=== PATIENT | female | born 1940 | race Caucasian/White ===

== ENCOUNTER 2017-08-30 13:34 | Inpatient (IN) | payer MEDICARE, MEDICAID ==
[~2017-08-30] VITALS: Ht 142.2 cm; Wt 44.9 kg
[~2017-08-30 13:34] MED LIST: NIFE60TA64 PO; PROTONIX PO
[2017-08-30 16:40] LABS: BASOPHILS % 0.7 % (0.0-2.0); EOSINOPHILS % 2.6 % (0.0-5.0); HEMOGLOBIN. 11.6 g/dL (12.0-16.0); LYMPHOCYTES % 28.1 % (20.0-50.0); MEAN CORPUSCULAR VOLUME 93.1 fL (81.0-99.0); MEAN PLATELET VOLUME 9.5 fl (7.4-10.4); MONOCYTES % 14.8 % (2.0-8.0); NEUTROPHILS % 53.8 % (40.0-76.0); PLATELET 128 x1000/uL (130-400); RED BLOOD CELL COUNT 3.86 mill/uL (4.2-5.4); RED CELL DISTRIBUTION WIDTH 18.4 % (11.6-14.6)
[2017-08-30 16:45] LABS: INR 1.7; PARTIAL THROMBOPLASTIN TIME 30.5 sec (23.4-31.0); PROTHROMBIN TIME 17.3 sec (9.4-11.6)
[2017-08-30 16:51] LABS: CARBON DIOXIDE 31 mEq/L (21-32); CHLORIDE 102 mEq/L (98-107)
[2017-08-30 16:56] LABS: TROPONIN I 0.64 ng/mL (0.00-0.04)
[2017-08-30] MEDS ORDERED: ASPIRIN 325MG EC TABLET PO ONE (17:30)
[2017-08-30] MEDS ORDERED: HYDROCODONE/ACETAMINOPHEN 5/325MG TABLET PO PRN (22:30)
[2017-08-30] MEDS ORDERED: LORAZEPAM 2MG/ML CPJ IV PRN (22:30)
[2017-08-30] MEDS ORDERED: ONDANSETRON HCL 4MG/2ML VIAL IV PRN (22:30)
[2017-08-30] MEDS ORDERED: ENOXAPARIN 40MG/0.4ML SYR SUBCUT SCH (22:30)
[2017-08-30] MEDS ORDERED: IPRATROPIUM/ALBUTEROL 0.5-3(2.5)MG/3ML NEB INH PRN (22:30)
[2017-08-30] MEDS ORDERED: MAGNESIUM/ALUMINUM HYDROXIDE/SIMETHICONE 30ML UDC PO PRN (22:30)
[2017-08-30] MEDS ORDERED: HYDROMORPHONE HCL/PF 2MG/ML CPJ IV PRN (22:30)
[2017-08-30] MEDS ORDERED: GUAIFENESIN 200MG/10ML SUGAR FREE UDC PO PRN (22:30)
[2017-08-30] MEDS ORDERED: ACETAMINOPHEN 325MG TABLET PO PRN (22:30)
[2017-08-30] MEDS ORDERED: DOCUSATE SODIUM 100MG CAPSULE PO PRN (22:30)
[2017-08-30] MEDS ORDERED: NA PHOS,M-B/NA PHOS,DI-BA ENEMA 118ML PR PRN (22:30)
[2017-08-30] MEDS ORDERED: CLONIDINE 0.1MG TABLET PO PRN (22:30)
[2017-08-30] MEDS ORDERED: DIPHENHYDRAMINE 50MG/ML VIAL IV PRN (22:30)
[2017-08-30 22:45] VITALS: BP 115/62
[2017-08-30 23:00] VITALS: BP 115/62
[2017-08-30 23:45] VITALS: BP 115/62
[2017-08-31 04:00] VITALS: BP 133/76
[2017-08-31 07:00] LABS: CARBON DIOXIDE 24 mEq/L (21-32); CHLORIDE 103 mEq/L (98-107); HDL CHOLESTEROL 47 mg/dL (40-59); LDL CHOLESTEROL 42 mg/dL (5-100); T4 FREE 0.78 ng/dL (0.76-1.46)
[2017-08-31 07:06] LABS: BASOPHILS % 0.6 % (0.0-2.0); EOSINOPHILS % 3.2 % (0.0-5.0); HEMATOCRIT. 35.1 % (36.0-48.0); HEMOGLOBIN. 11.2 g/dL (12.0-16.0); LYMPHOCYTES % 28.4 % (20.0-50.0); MEAN CORPUSCULAR HEMOGLOBIN 29.9 pg (28.0-32.0); MEAN CORPUSCULAR VOLUME 93.6 fL (81.0-99.0); MEAN PLATELET VOLUME 10.5 fl (7.4-10.4); MONOCYTES % 13.3 % (2.0-8.0); NEUTROPHILS % 54.5 % (40.0-76.0); PLATELET 114 x1000/uL (130-400); RED BLOOD CELL COUNT 3.75 mill/uL (4.2-5.4); RED CELL DISTRIBUTION WIDTH 18.2 % (11.6-14.6)
[2017-08-31 07:42] LABS: TROPONIN I 0.65 ng/mL (0.00-0.04)
[2017-08-31 08:46] VITALS: BP 138/83
[2017-08-31] MEDS: OMEPRAZOLE 20MG CAPSULE EXTENDED RELEASE PO SCH (09:54)
[2017-08-31] MEDS: ASPIRIN 81MG EC TABLET PO SCH (09:54)
[2017-08-31] MEDS: ENOXAPARIN 30MG/0.3ML SYR SUBCUT SCH (09:54)
[2017-08-31 12:00] VITALS: BP 127/75
[2017-08-31] MEDS ORDERED: WARF1TAB46 PO (13:45)
[2017-08-31] MEDS: CLOPIDOGREL 75MG TABLET PO SCH (14:22)
[2017-08-31 16:25] VITALS: BP 121/73
[2017-08-31 20:00] VITALS: BP 124/73
[2017-08-31] MEDS: CARVEDILOL 3.125 MG TABLET PO SCH (20:21)
[2017-08-31] MEDS ORDERED: MIRTAZAPINE 15MG TABLET PO SCH (21:00)
[2017-08-31] MEDS ORDERED: ATORVASTATIN CALCIUM 40MG TABLET PO SCH ×2 (21:00)
[2017-09-01] VITALS: BP 127/77
[2017-09-01 04:00] VITALS: BP 123/68
[2017-09-01 06:14] LABS: BASOPHILS % 0.8 % (0.0-2.0); HEMATOCRIT. 35.5 % (36.0-48.0); HEMOGLOBIN. 11.4 g/dL (12.0-16.0); LYMPHOCYTES % 21.7 % (20.0-50.0); MEAN CORPUSCULAR HEMOGLOBIN 30.1 pg (28.0-32.0); MEAN CORPUSCULAR VOLUME 93.3 fL (81.0-99.0); MEAN PLATELET VOLUME 9.8 fl (7.4-10.4); MONOCYTES % 10.8 % (2.0-8.0); NEUTROPHILS % 64.7 % (40.0-76.0); PLATELET 98 x1000/uL (130-400); RED CELL DISTRIBUTION WIDTH 17.9 % (11.6-14.6)
[2017-09-01] MEDS: OMEPRAZOLE 20MG CAPSULE EXTENDED RELEASE PO SCH (06:14)
[2017-09-01 06:41] LABS: PHOSPHORUS 4.4 mg/dL (2.5-4.9)
[2017-09-01 08:00] VITALS: BP 125/69
[2017-09-01] MEDS ORDERED: FOLIC ACID/VITAMIN B COMP W-C TABLET PO SCH (09:00)
[2017-09-01] MEDS: ASPIRIN 81MG EC TABLET PO SCH (10:28)
[2017-09-01] MEDS: CLOPIDOGREL 75MG TABLET PO SCH (10:29)
[2017-09-01] MEDS: CARVEDILOL 3.125 MG TABLET PO SCH (10:29)
[2017-09-01] MEDS: ENOXAPARIN 30MG/0.3ML SYR SUBCUT SCH (10:31)
[2017-09-01 10:43] LABS: INR 1.4; PROTHROMBIN TIME 14.3 sec (9.4-11.6)
[2017-09-01 11:51] VITALS: BP 125/69
[2017-09-01 12:00] VITALS: BP 127/70
== END 2017-09-01 12:40 | disposition home or self-care (01) | DRG 604 ==
LOC: ER 14:07 → 8WST 21:28 → ENRESERV 21:53
PROVIDERS: ADMIT Internal Medicine; ATTEND Internal Medicine
PROC: 5A1D70Z Performance of Urinary Filtration, Intermittent, Less than 6 Hours Per Day (ICD-10-PCS; principal; 2017-08-31)
DX: S00.83XA Contusion of other part of head, initial encounter (principal); N18.6 End stage renal disease; I13.2 Hypertensive heart and chronic kidney disease with heart failure and with stage 5 chronic kidney disease, or end stage renal disease; E46 Unspecified protein-calorie malnutrition; D69.6 Thrombocytopenia, unspecified; I27.29 Other secondary pulmonary hypertension; I08.3 Combined rheumatic disorders of mitral, aortic and tricuspid valves; I27.81 Cor pulmonale (chronic); I42.9 Cardiomyopathy, unspecified; D64.9 Anemia, unspecified; I48.0 Paroxysmal atrial fibrillation; I25.10 Atherosclerotic heart disease of native coronary artery without angina pectoris; K21.9 Gastro-esophageal reflux disease without esophagitis; I73.9 Peripheral vascular disease, unspecified; M10.9 Gout, unspecified; E78.00 Pure hypercholesterolemia, unspecified; I50.9 Heart failure, unspecified; S80.10XA Contusion of unspecified lower leg, initial encounter; M19.90 Unspecified osteoarthritis, unspecified site; E78.5 Hyperlipidemia, unspecified; W18.30XA Fall on same level, unspecified, initial encounter; M81.0 Age-related osteoporosis without current pathological fracture; Z86.718 Personal history of other venous thrombosis and embolism; Z83.3 Family history of diabetes mellitus; Z82.49 Family history of ischemic heart disease and other diseases of the circulatory system; Z98.42 Cataract extraction status, left eye; Z99.2 Dependence on renal dialysis; Z88.8 Allergy status to other drugs, medicaments and biological substances; I25.2 Old myocardial infarction; Z68.22 Body mass index [BMI] 22.0-22.9, adult; Y93.89 Activity, other specified; Y92.89 Other specified places as the place of occurrence of the external cause; Y99.8 Other external cause status; Z86.73 Personal history of transient ischemic attack (TIA), and cerebral infarction without residual deficits; Z95.810 Presence of automatic (implantable) cardiac defibrillator; Z87.11 Personal history of peptic ulcer disease; Z98.41 Cataract extraction status, right eye; Z82.41 Family history of sudden cardiac death; Z79.01 Long term (current) use of anticoagulants
CPT/HCPCS: 36415; 70450; 71010; 80048; 80053; 80061; 83690; 83735; 84100; 84439; 84443; 84484; 84550; 85025; 85610; 85730; 93005; 93306; 99285; J1650; J7030

== ENCOUNTER 2017-11-02 18:15 | Inpatient (IN) | payer MEDICARE, MEDICAID ==
[~2017-11-02] VITALS: Ht 157.5 cm; Wt 56.5 kg
[~2017-11-02 18:15] MED LIST changes: +WARF1TAB46 PO
[2017-11-02] MEDS ORDERED: LABETALOL 5MG/ML SYR 20 MG/4 ML SYRINGE IV ONE (18:45)
[2017-11-02] MEDS ORDERED: ONDANSETRON HCL 4MG/2ML VIAL IV ONE (18:45)
[2017-11-02] MEDS ORDERED: PIPERACILLIN/TAZ 3.375G PREMIX 50 ML IV ONE (19:00)
[2017-11-02] MEDS ORDERED: ACETAMINOPHEN 650MG SUPP PR ONE (19:00)
[2017-11-02 20:15] LABS: HEMATOCRIT. 34.4 % (36.0-48.0); MEAN CORPUSCULAR HEMOGLOBIN 29.2 pg (28.0-32.0); MEAN CORPUSCULAR VOLUME 91.8 fL (81.0-99.0); MEAN PLATELET VOLUME 9.6 fl (7.4-10.4); PLATELET 90 x1000/uL (130-400); RED BLOOD CELL COUNT 3.75 mill/uL (4.2-5.4); RED CELL DISTRIBUTION WIDTH 23.3 % (11.6-14.6)
[2017-11-02] MEDS ORDERED: VANCOMYCIN 1 G PREMIX 200 ML IV SCH (20:30)
[2017-11-02 20:33] LABS: CARBON DIOXIDE 29 mEq/L (21-32); CHLORIDE 98 mEq/L (98-107); PHOSPHORUS 4.7 mg/dL (2.5-4.9)
[2017-11-02 20:40] LABS: TROPONIN I 0.98 ng/mL (0.00-0.04)
[2017-11-02] MEDS ORDERED: ASPIRIN 81MG TABLET PO ONE (20:45)
[2017-11-02 21:04] LABS: PLATELET ESTIMATE DECREASED
[2017-11-02 22:11] LABS: PROTHROMBIN TIME > 100.0 sec (9.4-11.6)
[2017-11-02 22:12] LABS: INR > 10.0
[2017-11-03] VITALS (67 sets, daily range): BP systolic 62–218; BP diastolic 20–181
[2017-11-03] MEDS: HYDROCODONE/APAP 7.5/325MG 1 TAB TABLET PO PRN (03:45)
[2017-11-03] MEDS ORDERED: PIPERACILLIN/TAZ 2.25G PREMIX 50 ML IV SCH (10:00)
[2017-11-03 10:54] LABS: HEMATOCRIT. 35.1 % (36.0-48.0); MEAN CORPUSCULAR VOLUME 92.6 fL (81.0-99.0); MEAN PLATELET VOLUME 9.2 fl (7.4-10.4); PLATELET 85 x1000/uL (130-400); RED CELL DISTRIBUTION WIDTH 23.4 % (11.6-14.6)
[2017-11-03] MEDS ORDERED: CEFTRIAXONE 2 G in DEXTROSE 5% WATER 50 ML IV SCH (11:00)
[2017-11-03 11:12] LABS: PROTHROMBIN TIME 92.9 sec (9.4-11.6)
[2017-11-03 11:15] LABS: INR 8.9
[2017-11-03 11:29] LABS: CARBON DIOXIDE 25 mEq/L (21-32); CHLORIDE 98 mEq/L (98-107); PLATELET ESTIMATE DECREASED
[2017-11-03] MEDS ORDERED: PHYTONADIONE 10MG/ML AMP SUBCUT NR (12:00)
[2017-11-03] MEDS ORDERED: ONDANSETRON HCL 4MG/2ML VIAL IV PRN (12:00)
[2017-11-03] MEDS ORDERED: GUAIFENESIN 200MG/10ML SUGAR FREE UDC PO PRN (12:00)
[2017-11-03] MEDS ORDERED: DEXT 5%/0.45% NACL 500ML 500 ML IV ONE (12:00)
[2017-11-03] MEDS ORDERED: AZITHROMYCIN 500 MG in DEXT 5% WATER 250 ML IV SCH (12:00)
[2017-11-03] MEDS: MEROPENEM 500 MG in SODIUM CHLORIDE 0.9% 50 ML IV SCH ×2 (13:50→21:28)
[2017-11-03 18:02] LABS: CREATINE KINASE MB FRACTION 5.4 ng/mL (0.5-3.6)
[2017-11-03 18:13] LABS: TROPONIN I 0.88 ng/mL (0.00-0.04)
[2017-11-04] VITALS (29 sets, daily range): BP systolic 88–131; BP diastolic 25–91
[2017-11-04 01:30] LABS: CREATINE KINASE MB FRACTION 5.6 ng/mL (0.5-3.6)
[2017-11-04 01:55] LABS: TROPONIN I 0.8 ng/mL (0.00-0.04)
[2017-11-04 05:14] LABS: HEMATOCRIT. 33.9 % (36.0-48.0); HEMOGLOBIN. 10.6 g/dL (12.0-16.0); MEAN CORPUSCULAR HEMOGLOBIN 28.8 pg (28.0-32.0); MEAN CORPUSCULAR VOLUME 91.9 fL (81.0-99.0); MEAN PLATELET VOLUME 9.4 fl (7.4-10.4); PLATELET 102 x1000/uL (130-400); RED BLOOD CELL COUNT 3.69 mill/uL (4.2-5.4); RED CELL DISTRIBUTION WIDTH 23.2 % (11.6-14.6)
[2017-11-04] MEDS: MEROPENEM 500 MG in SODIUM CHLORIDE 0.9% 50 ML IV SCH ×3 (05:16→23:37)
[2017-11-04 05:22] LABS: INR 3.7; PROTHROMBIN TIME 38.8 sec (9.4-11.6)
[2017-11-04 06:08] LABS: CARBON DIOXIDE 27 mEq/L (21-32); CHLORIDE 97 mEq/L (98-107)
[2017-11-04 06:25] LABS: CREATINE KINASE 113 IU/L (26-192); CREATINE KINASE MB FRACTION 5.2 ng/mL (0.5-3.6)
[2017-11-04 06:36] LABS: TROPONIN I 0.95 ng/mL (0.00-0.04)
[2017-11-04] MEDS ORDERED: DEXTROSE 50% WATER 50ML SYRINGE IV PRN (08:30)
[2017-11-04] MEDS ORDERED: DEXT 5%/0.45% NACL 1000ML 1,000 ML IV SCH (10:00)
[2017-11-04 10:09] LABS: PLATELET ESTIMATE DECREASED
[2017-11-04] MEDS: CLOPIDOGREL 75MG TABLET PO SCH (10:15)
[2017-11-04] MEDS: ASPIRIN 81MG EC TABLET PO SCH (12:30)
[2017-11-04] MEDS ORDERED: BLOOD SUGAR DIAGNOSTIC STRIP TEST SCH (12:50)
[2017-11-04] MEDS ORDERED: INSULIN LISPRO 100 UNITS/ML SUBCUT SCH (13:20)
[2017-11-04] MEDS: HYDROCODONE/APAP 7.5/325MG 1 TAB TABLET PO PRN (23:49)
[2017-11-05] VITALS (16 sets, daily range): BP systolic 92–132; BP diastolic 37–71
[2017-11-05] MEDS: SILVER SULFADIAZINE 1% CREAM 25GM TOP SCH ×2 (00:06→15:39)
[2017-11-05] MEDS ORDERED: VANCOMYCIN 750 MG PREMIX 150 ML IV NR (06:00)
[2017-11-05] MEDS: MEROPENEM 500 MG in SODIUM CHLORIDE 0.9% 50 ML IV SCH ×3 (06:53→22:09)
[2017-11-05] MEDS: CLOPIDOGREL 75MG TABLET PO SCH (08:33)
[2017-11-05] MEDS: ASPIRIN 81MG EC TABLET PO SCH (08:34)
[2017-11-05 09:34] LABS: HEMOGLOBIN. 10.1 g/dL (12.0-16.0); MEAN CORPUSCULAR HEMOGLOBIN 29.2 pg (28.0-32.0); MEAN CORPUSCULAR VOLUME 92.3 fL (81.0-99.0); MEAN PLATELET VOLUME 9.6 fl (7.4-10.4); PLATELET 92 x1000/uL (130-400); RED BLOOD CELL COUNT 3.47 mill/uL (4.2-5.4); RED CELL DISTRIBUTION WIDTH 22.8 % (11.6-14.6)
[2017-11-05 09:51] LABS: PHOSPHORUS 4.1 mg/dL (2.5-4.9)
[2017-11-05 14:58] LABS: NUCLEATED RED BLOOD CELLS 1 /100 WBC
[2017-11-05 14:59] LABS: PLATELET ESTIMATE DECREASED
[2017-11-05] MEDS ORDERED: WARFARIN SODIUM 1MG TABLET PO NR (18:00)
[2017-11-05 18:18] LABS: INR 1.4; PROTHROMBIN TIME 14.3 sec (9.4-11.6)
[2017-11-06] VITALS (12 sets, daily range): BP systolic 85–128; BP diastolic 39–99
[2017-11-06] MEDS: MEROPENEM 500 MG in SODIUM CHLORIDE 0.9% 50 ML IV SCH ×2 (05:34→18:02)
[2017-11-06 06:42] LABS: HEMATOCRIT. 31.2 % (36.0-48.0); MEAN CORPUSCULAR HEMOGLOBIN 29.2 pg (28.0-32.0); MEAN CORPUSCULAR VOLUME 91.5 fL (81.0-99.0); MEAN PLATELET VOLUME 9.3 fl (7.4-10.4); PLATELET 80 x1000/uL (130-400); RED BLOOD CELL COUNT 3.41 mill/uL (4.2-5.4); RED CELL DISTRIBUTION WIDTH 22.2 % (11.6-14.6)
[2017-11-06 06:45] LABS: INR 1.4
[2017-11-06 08:32] LABS: CARBON DIOXIDE 27 mEq/L (21-32); CHLORIDE 100 mEq/L (98-107); PHOSPHORUS 5.1 mg/dL (2.5-4.9)
[2017-11-06] MEDS: CLOPIDOGREL 75MG TABLET PO SCH (09:14)
[2017-11-06] MEDS: ASPIRIN 81MG EC TABLET PO SCH (09:14)
[2017-11-06 14:30] LABS: PLATELET ESTIMATE DECREASED
[2017-11-06] MEDS: SILVER SULFADIAZINE 1% CREAM 25GM TOP SCH (16:40)
[2017-11-06] MEDS ORDERED: WARFARIN SODIUM 2MG TABLET PO SCH (18:00)
[2017-11-07] VITALS (12 sets, daily range): BP systolic 90–113; BP diastolic 47–69
[2017-11-07] MEDS: MEROPENEM 500 MG in SODIUM CHLORIDE 0.9% 50 ML IV SCH (05:51)
[2017-11-07 06:26] LABS: INR 1.6; PROTHROMBIN TIME 16.6 sec (9.4-11.6)
[2017-11-07 06:29] LABS: BASOPHILS % 0.2 % (0.0-2.0); EOSINOPHILS % 1.7 % (0.0-5.0); HEMATOCRIT. 31.6 % (36.0-48.0); HEMOGLOBIN. 9.9 g/dL (12.0-16.0); LYMPHOCYTES % 9.9 % (20.0-50.0); MEAN CORPUSCULAR HEMOGLOBIN 28.8 pg (28.0-32.0); MEAN CORPUSCULAR VOLUME 91.6 fL (81.0-99.0); NEUTROPHILS % 78.2 % (40.0-76.0); RED BLOOD CELL COUNT 3.44 mill/uL (4.2-5.4); RED CELL DISTRIBUTION WIDTH 22.6 % (11.6-14.6)
[2017-11-07 06:43] LABS: PHOSPHORUS 6.8 mg/dL (2.5-4.9)
[2017-11-07 10:52] LABS: MEAN PLATELET VOLUME 10.5 fl (7.4-10.4); PLATELET 71 x1000/uL (130-400)
[2017-11-07 10:53] LABS: PLATELET ESTIMATE DECREASED
[2017-11-07] MEDS: ASPIRIN 81MG EC TABLET PO SCH (10:59)
[2017-11-07] MEDS: CLOPIDOGREL 75MG TABLET PO SCH (10:59)
[2017-11-07] MEDS: SEVELAMER CARBONATE 800 MG TABLET PO SCH ×2 (12:20→17:54)
[2017-11-07] MEDS ORDERED: LIDOCAINE HCL 1% 20ML VIAL (Pyxis) INJ ONE (13:00)
[2017-11-07] MEDS: SILVER SULFADIAZINE 1% CREAM 25GM TOP SCH (16:15)
[2017-11-07] MEDS ORDERED: WARFARIN SODIUM 2MG TABLET PO SCH (18:00)
[2017-11-07] MEDS: ATORVASTATIN CALCIUM 40MG TABLET PO SCH (20:16)
[2017-11-07] MEDS: ASCORBIC ACID 250 MG TABLET PO SCH (20:16)
[2017-11-07] MEDS: HYDROCODONE/APAP 7.5/325MG 1 TAB TABLET PO PRN (20:27)
[2017-11-07] MEDS ORDERED: EPOETIN ALFA 4000UNITS/ML VIAL SUBCUT SCH (21:00)
[2017-11-08] VITALS (12 sets, daily range): BP systolic 98–147; BP diastolic 47–93
[2017-11-08 07:03] LABS: INR 2.4; PROTHROMBIN TIME 24.9 sec (9.4-11.6)
[2017-11-08 07:24] LABS: BASOPHILS % 0.3 % (0.0-2.0); EOSINOPHILS % 5.7 % (0.0-5.0); HEMATOCRIT. 29.5 % (36.0-48.0); HEMOGLOBIN. 9.4 g/dL (12.0-16.0); LYMPHOCYTES % 11.3 % (20.0-50.0); MEAN CORPUSCULAR HEMOGLOBIN 29.6 pg (28.0-32.0); MEAN CORPUSCULAR VOLUME 92.6 fL (81.0-99.0); MEAN PLATELET VOLUME 10.3 fl (7.4-10.4); MONOCYTES % 11.6 % (2.0-8.0); NEUTROPHILS % 71.1 % (40.0-76.0); PLATELET 85 x1000/uL (130-400); RED BLOOD CELL COUNT 3.18 mill/uL (4.2-5.4); RED CELL DISTRIBUTION WIDTH 22.4 % (11.6-14.6)
[2017-11-08] MEDS ORDERED: FOLIC ACID/VITAMIN B COMP W-C TABLET PO SCH (09:00)
[2017-11-08] MEDS ORDERED: MEROPENEM 500MG in NORMAL SALINE 50ML IV SCH (09:00)
[2017-11-08] MEDS ORDERED: ZINC SULFATE 220 MG ( 50 ) CAPSULE PO SCH (09:00)
[2017-11-08] MEDS: SEVELAMER CARBONATE 800 MG TABLET PO SCH ×3 (09:56→19:31)
[2017-11-08] MEDS: ASCORBIC ACID 250 MG TABLET PO SCH ×2 (09:56→20:37)
[2017-11-08] MEDS: SILVER SULFADIAZINE 1% CREAM 25GM TOP SCH (10:04)
[2017-11-08] MEDS ORDERED: CLOPIDOGREL 75MG TABLET PO SCH (12:00)
[2017-11-08] MEDS: ATORVASTATIN CALCIUM 40MG TABLET PO SCH (20:37)
== END 2017-11-08 22:00 | DRG 871 ==
LOC: ER 18:29 → CVICU 20:56 → EDBEDREQ 21:10 → EDBEDREQTM 21:10 → ENRESERV 11-03 07:17 → 3WST 11-04 11:00
PROVIDERS: ADMIT Internal Medicine; ATTEND Internal Medicine
PROC: 5A1D70Z Performance of Urinary Filtration, Intermittent, Less than 6 Hours Per Day (ICD-10-PCS; 2017-11-04)
PROC: 05H633Z Insertion of Infusion Device into Left Subclavian Vein, Percutaneous Approach (ICD-10-PCS; principal; 2017-11-07)
PROC: B547ZZA Ultrasonography of Left Subclavian Vein, Guidance (ICD-10-PCS; 2017-11-07)
PROC: 5A1D70Z Performance of Urinary Filtration, Intermittent, Less than 6 Hours Per Day (ICD-10-PCS; 2017-11-07)
PROC: 5A1D70Z Performance of Urinary Filtration, Intermittent, Less than 6 Hours Per Day (ICD-10-PCS; 2017-11-08)
DX: A41.9 Sepsis, unspecified organism (principal); G92 Toxic encephalopathy; I21.4 Non-ST elevation (NSTEMI) myocardial infarction; I13.2 Hypertensive heart and chronic kidney disease with heart failure and with stage 5 chronic kidney disease, or end stage renal disease; K80.00 Calculus of gallbladder with acute cholecystitis without obstruction; D68.9 Coagulation defect, unspecified; J18.1 Lobar pneumonia, unspecified organism; E11.22 Type 2 diabetes mellitus with diabetic chronic kidney disease; D69.6 Thrombocytopenia, unspecified; N18.6 End stage renal disease; L03.116 Cellulitis of left lower limb; I16.1 Hypertensive emergency; I50.20 Unspecified systolic (congestive) heart failure; E11.51 Type 2 diabetes mellitus with diabetic peripheral angiopathy without gangrene; I25.10 Atherosclerotic heart disease of native coronary artery without angina pectoris; D64.9 Anemia, unspecified; E78.5 Hyperlipidemia, unspecified; I08.3 Combined rheumatic disorders of mitral, aortic and tricuspid valves; I25.5 Ischemic cardiomyopathy; I27.29 Other secondary pulmonary hypertension; I27.81 Cor pulmonale (chronic); I48.0 Paroxysmal atrial fibrillation; M10.9 Gout, unspecified; T45.515A Adverse effect of anticoagulants, initial encounter; I25.2 Old myocardial infarction; Z98.61 Coronary angioplasty status; Z99.2 Dependence on renal dialysis; Z95.810 Presence of automatic (implantable) cardiac defibrillator; Z79.01 Long term (current) use of anticoagulants; Z88.8 Allergy status to other drugs, medicaments and biological substances; Z86.718 Personal history of other venous thrombosis and embolism; Z87.11 Personal history of peptic ulcer disease; Z86.73 Personal history of transient ischemic attack (TIA), and cerebral infarction without residual deficits; Z82.49 Family history of ischemic heart disease and other diseases of the circulatory system; Z83.3 Family history of diabetes mellitus
CPT/HCPCS: 36415; 36569; 70450; 71045; 74176; 76937; 80048; 80053; 80202; 82550; 82553; 82962; 83605; 83690; 83735; 84100; 84484; 85025; 85610; 87040; 87070; 87076; 87205; 92610; 93005; 93306; 93923; 93970; 96365; 97162; 99291; C1725; J0456; J0696; J0885; J2185; J2543; J3370; J3430; J3490; J7030; J7050; J7060

== ENCOUNTER 2018-09-27 17:40 | Inpatient (IN) | payer MEDICARE, MEDICAID ==
[~2018-09-27] VITALS: Ht 144.8 cm; Wt 47.2 kg
[~2018-09-27 17:40] MED LIST changes: -NIFE60TA64 PO; -WARF1TAB46 PO
[2018-09-27] MEDS ORDERED: PANTOPRAZOLE SODIUM 40 MG/VIAL IV STA (18:41)
[2018-09-27] MEDS ORDERED: SODIUM CHLORIDE 0.9% 1,000 ML IV ONE (18:41)
[2018-09-27 19:26] LABS: BASOPHILS % 1.1 % (0.0-2.0); EOSINOPHILS % 0.5 % (0.0-5.0); HEMATOCRIT. 36.6 % (36.0-48.0); HEMOGLOBIN. 11.7 g/dL (12.0-16.0); MEAN CORPUSCULAR HEMOGLOBIN 29.9 pg (28.0-32.0); MEAN CORPUSCULAR VOLUME 93.1 fL (81.0-99.0); MEAN PLATELET VOLUME 10.5 fl (7.4-10.4); MONOCYTES % 10.4 % (2.0-8.0); PLATELET 214 x1000/uL (130-400); RED BLOOD CELL COUNT 3.93 mill/uL (4.2-5.4); RED CELL DISTRIBUTION WIDTH 21.3 % (11.6-14.6)
[2018-09-27 19:30] LABS: INR 1.4; PARTIAL THROMBOPLASTIN TIME 30.6 sec (23.4-31.0); PROTHROMBIN TIME 14.3 sec (9.1-11.1)
[2018-09-27 20:50] LABS: CHLORIDE 100 mEq/L (98-107)
[2018-09-27] MEDS ORDERED: SODIUM CHLORIDE 0.9% 500 ML IV ONE (21:37)
[2018-09-28] VITALS (7 sets, daily range): BP systolic 85–108; BP diastolic 19–44
[2018-09-28] MEDS ORDERED: ACETAMINOPHEN 650MG/20.3ML UDC PO PRN (04:00)
[2018-09-28] MEDS ORDERED: ONDANSETRON HCL 4MG/2ML INJ IV PRN (04:00)
[2018-09-28] MEDS ORDERED: DIPHENHYDRAMINE 50MG/ML VIAL IV PRN (04:00)
[2018-09-28] MEDS ORDERED: SODIUM CHLORIDE 0.45% 1,000 ML IV SCH (05:00)
[2018-09-28 06:56] LABS: HEMATOCRIT. 31.9 % (36.0-48.0); HEMOGLOBIN. 10.4 g/dL (12.0-16.0); MEAN CORPUSCULAR HEMOGLOBIN 30.3 pg (28.0-32.0); PLATELET 126 x1000/uL (130-400); RED BLOOD CELL COUNT 3.43 mill/uL (4.2-5.4); RED CELL DISTRIBUTION WIDTH 20.1 % (11.6-14.6)
[2018-09-28] MEDS ORDERED: FOLIC ACID/VITAMIN B COMP W-C TABLET PO SCH (09:00)
[2018-09-28] MEDS ORDERED: CLOPIDOGREL 75MG TABLET PO SCH (09:00)
[2018-09-28] MEDS ORDERED: PANTOPRAZOLE SODIUM 40 MG/VIAL IV SCH (09:00)
[2018-09-28] MEDS ORDERED: ASPIRIN 81MG TABLET PO SCH (09:00)
[2018-09-28] MEDS: MIDODRINE HCL 2.5MG TABLET PO SCH ×2 (09:15→14:25)
[2018-09-28] MEDS ORDERED: WARF1TAB85 MT (11:12)
[2018-09-28] MEDS ORDERED: CLOP75TA33 MT (11:12)
[2018-09-28] MEDS ORDERED: FOLI0.8T23 MT (11:13)
[2018-09-28] MEDS ORDERED: MIDO5TAB MT (11:16)
[2018-09-28] MEDS ORDERED: SEVELAMER CARBONATE 800 MG TABLET PO SCH (12:50)
[2018-09-28 14:52] LABS: NUCLEATED RED BLOOD CELLS 2 /100 WBC
[2018-09-28 14:53] LABS: PLATELET ESTIMATE SLIGHTLY DECREASED
[2018-09-28] MEDS ORDERED: WARFARIN SODIUM 1MG TABLET PO SCH ×2 (18:00)
== END 2018-09-28 17:04 | disposition home or self-care (01) | DRG 391 ==
LOC: ER 19:17 → 6WST 19:53 → EDBEDREQ 19:56 → EDBEDREQTM 19:56 → EDBEDREQSVC 19:56 → ENRESERV 22:55 → 6WST 09-28 02:33
PROVIDERS: ADMIT Internal Medicine; ATTEND Internal Medicine
DX: R19.5 Other fecal abnormalities (principal); N18.6 End stage renal disease; I12.0 Hypertensive chronic kidney disease with stage 5 chronic kidney disease or end stage renal disease; N25.81 Secondary hyperparathyroidism of renal origin; T47.6X5A Adverse effect of antidiarrheal drugs, initial encounter; D64.9 Anemia, unspecified; I25.10 Atherosclerotic heart disease of native coronary artery without angina pectoris; I25.2 Old myocardial infarction; I27.20 Pulmonary hypertension, unspecified; I48.91 Unspecified atrial fibrillation; I73.9 Peripheral vascular disease, unspecified; I95.89 Other hypotension; M10.9 Gout, unspecified; M25.569 Pain in unspecified knee; G89.29 Other chronic pain; K21.9 Gastro-esophageal reflux disease without esophagitis; M06.9 Rheumatoid arthritis, unspecified; M81.0 Age-related osteoporosis without current pathological fracture; Z79.01 Long term (current) use of anticoagulants; Z82.41 Family history of sudden cardiac death; Z82.49 Family history of ischemic heart disease and other diseases of the circulatory system; Z86.73 Personal history of transient ischemic attack (TIA), and cerebral infarction without residual deficits; Z86.718 Personal history of other venous thrombosis and embolism; Z95.0 Presence of cardiac pacemaker; Z87.11 Personal history of peptic ulcer disease; Z95.5 Presence of coronary angioplasty implant and graft; Z99.2 Dependence on renal dialysis; Z79.899 Other long term (current) drug therapy; Z79.02 Long term (current) use of antithrombotics/antiplatelets; Z88.8 Allergy status to other drugs, medicaments and biological substances; Z98.42 Cataract extraction status, left eye; Z98.41 Cataract extraction status, right eye; Z79.82 Long term (current) use of aspirin; Y92.89 Other specified places as the place of occurrence of the external cause
CPT/HCPCS: 36415; 71045; 80048; 83605; 85007; 85027; 86850; 86900; 96374; 99285; C9113; J7030

== ENCOUNTER 2018-11-24 11:18 | Inpatient (IN) | payer MEDICARE, MEDICAID ==
[~2018-11-24] VITALS: Ht 162.6 cm; Wt 56.0 kg
[~2018-11-24 11:18] MED LIST changes: +CLOP75TA33 MT; +FOLI0.8T23 MT; +MIDO5TAB MT; +WARF1TAB85 MT
[2018-11-24] MEDS ORDERED: DEXTROSE 50% WATER 50ML SYRINGE IV ONE (12:00)
[2018-11-24 12:33] LABS: BG BASE EXCESS 3.2 mmol/L (-2.0-2.0); BG CARBOXYHEMOGLOBIN 2.7 % (0.5-1.5); BG DEOXYHEMOGLOBIN 7.7 % (0.0-5.0); BG FRACTION INSPIRED OXYGEN 40; BG HCO3 ACT 29.8 mmol/L (22.0-26.0); BG METHEMOGLOBIN 0.3 % (0.0-1.5); BG OXYGEN SATURATION 92.1 % (92.0-98.5); BG OXYHEMOGLOBIN 89.3 % (94.0-97.0); BG PCO2 54.2 mmHg (35.0-45.0); BG PH 7.358 (7.350-7.450); BG PO2 74.7 mmHg (75.0-100.0); BG SAMPLE SITE LEFT BRACHIAL; BG TOTAL HEMOGLOBIN 12.4 g/dL (12.0-18.0); BG VENT MODE NASAL CANNULA
[2018-11-24] MEDS ORDERED: MIDODRINE HCL 5MG TABLET PO SCH (13:00)
[2018-11-24] MEDS ORDERED: SEVELAMER CARBONATE 800 MG TABLET PO SCH (13:00)
[2018-11-24] MEDS ORDERED: LIDOCAINE HCL 1% 20ML VIAL (Pyxis) INJ ONE (13:10)
[2018-11-24] MEDS ORDERED: NOREPINEPHRINE 4 MG in DEXT 5% WATER 246 ML IV ONE (13:15)
[2018-11-24] MEDS ORDERED: NOREPINEPHRINE 4MG/250ML PMX 250 ML IV ONE ×2 (13:23→20:30)
[2018-11-24 13:47] LABS: CHLORIDE 96 mEq/L (98-107)
[2018-11-24 13:50] LABS: INR 1.3; PARTIAL THROMBOPLASTIN TIME 34.1 sec (23.4-31.0); PROTHROMBIN TIME 12.6 sec (9.1-11.1)
[2018-11-24 14:26] LABS: HEMATOCRIT. 39.3 % (36.0-48.0); HEMOGLOBIN. 12.5 g/dL (12.0-16.0); MEAN CORPUSCULAR HEMOGLOBIN 29.4 pg (28.0-32.0); MEAN CORPUSCULAR VOLUME 92.4 fL (81.0-99.0); RED BLOOD CELL COUNT 4.25 mill/uL (4.2-5.4); RED CELL DISTRIBUTION WIDTH 19.6 % (11.6-14.6)
[2018-11-24 14:46] LABS: MEAN PLATELET VOLUME 9.2 fl (7.4-10.4); PLATELET 91 x1000/uL (130-400); PLATELET ESTIMATE DECREASED
[2018-11-24] MEDS ORDERED: DEXTROSE 50% WATER 50ML SYRINGE IV PRN (19:45)
[2018-11-24] MEDS ORDERED: INSULIN LISPRO 100 UNITS/ML SUBCUT SCH (21:00)
[2018-11-24] MEDS ORDERED: BLOOD SUGAR DIAGNOSTIC STRIP TEST SCH (21:00)
[2018-11-25] VITALS (54 sets, daily range): BP systolic 52–204; BP diastolic 19–177
[2018-11-25] MEDS ORDERED: NOREPINEPHRINE 4MG/250ML PMX 250 ML IV PRN (01:30)
[2018-11-25 06:49] LABS: CHLORIDE 98 mEq/L (98-107); HEMATOCRIT. 44.5 % (36.0-48.0); MEAN CORPUSCULAR HEMOGLOBIN 29.5 pg (28.0-32.0); MEAN CORPUSCULAR VOLUME 93.7 fL (81.0-99.0); MEAN PLATELET VOLUME 9.1 fl (7.4-10.4); PLATELET 159 x1000/uL (130-400); RED BLOOD CELL COUNT 4.75 mill/uL (4.2-5.4); RED CELL DISTRIBUTION WIDTH 19.4 % (11.6-14.6)
[2018-11-25 06:51] LABS: CREATINE KINASE MB FRACTION 5.2 ng/mL (0.5-3.6)
[2018-11-25 06:57] LABS: LDL CHOLESTEROL 72 mg/dL (5-100)
[2018-11-25 06:58] LABS: HDL CHOLESTEROL 51 mg/dL (40-59)
[2018-11-25 06:59] LABS: CREATINE KINASE 45 IU/L (26-192)
[2018-11-25 07:07] LABS: D-DIMER 2.09 mg/L FEU (<0.50); INR 1.4; PROTHROMBIN TIME 13.7 sec (9.1-11.1)
[2018-11-25 08:18] LABS: NUCLEATED RED BLOOD CELLS 1 /100 WBC; PLATELET ESTIMATE NORMAL
[2018-11-25] MEDS ORDERED: WARFARIN SODIUM 1MG TABLET PO SCH ×2 (09:00→18:00)
[2018-11-25] MEDS ORDERED: IPRATROPIUM/ALBUTEROL 0.5-3(2.5)MG/3ML NEB HHN PRN (12:30)
[2018-11-25] MEDS: SEVELAMER CARBONATE 800 MG TABLET PO SCH (17:00)
[2018-11-25] MEDS: FOLIC ACID/VITAMIN B COMP W-C TABLET PO SCH (17:04)
[2018-11-25] MEDS: ASPIRIN 81MG TABLET PO SCH (17:05)
[2018-11-25] MEDS: CLOPIDOGREL 75MG TABLET PO SCH (17:05)
[2018-11-25] MEDS: MIDODRINE HCL 5MG TABLET PO SCH ×2 (17:06→19:43)
[2018-11-25] MEDS: PANTOPRAZOLE 40MG DR TABLET PO SCH (17:08)
[2018-11-25] MEDS ORDERED: NOREPINEPHRINE 32 MG in DEXT 5% WATER 468 ML IV PRN (18:00)
[2018-11-25] MEDS ORDERED: PHENYLEPHRINE 40 MG in DEXT 5% WATER 246 ML IV PRN (18:45)
[2018-11-25] MEDS: ATORVASTATIN CALCIUM 40MG TABLET PO SCH ×2 (21:46→21:49)
[2018-11-26] VITALS (78 sets, daily range): BP systolic 31–235; BP diastolic 13–178
[2018-11-26 05:32] LABS: INR 1.7; PROTHROMBIN TIME 16.5 sec (9.1-11.1)
[2018-11-26 05:35] LABS: BASOPHILS % 0.1 % (0.0-2.0); EOSINOPHILS % 0.1 % (0.0-5.0); HEMOGLOBIN. 12.4 g/dL (12.0-16.0); MEAN CORPUSCULAR HEMOGLOBIN 29.4 pg (28.0-32.0); MEAN CORPUSCULAR VOLUME 92.8 fL (81.0-99.0); MEAN PLATELET VOLUME 8.8 fl (7.4-10.4); NEUTROPHILS % 78.8 % (40.0-76.0); PLATELET 115 x1000/uL (130-400); RED CELL DISTRIBUTION WIDTH 18.9 % (11.6-14.6)
[2018-11-26 05:43] LABS: CHLORIDE 92 mEq/L (98-107)
[2018-11-26 05:58] LABS: PHOSPHORUS 3.3 mg/dL (2.5-4.9)
[2018-11-26 06:01] LABS: CREATINE KINASE 371 IU/L (26-192)
[2018-11-26 06:03] LABS: CREATINE KINASE MB FRACTION 7.1 ng/mL (0.5-3.6)
[2018-11-26] MEDS: PANTOPRAZOLE 40MG DR TABLET PO SCH (06:30)
[2018-11-26] MEDS ORDERED: DEXTROSE 50% WATER 50ML SYRINGE IV ONE (06:36)
[2018-11-26] MEDS: SEVELAMER CARBONATE 800 MG TABLET PO SCH ×2 (07:57→12:30)
[2018-11-26] MEDS: FOLIC ACID/VITAMIN B COMP W-C TABLET PO SCH (07:57)
[2018-11-26] MEDS: ASPIRIN 81MG TABLET PO SCH (07:57)
[2018-11-26] MEDS: CLOPIDOGREL 75MG TABLET PO SCH (07:57)
[2018-11-26] MEDS: MIDODRINE HCL 5MG TABLET PO SCH ×3 (07:58→18:00)
[2018-11-26] MEDS ORDERED: MIDODRINE HCL 5MG TABLET PO SCH (09:00)
[2018-11-26] MEDS ORDERED: NOREPINEPHRINE 32 MG in SODIUM CHLORIDE 0.9% 468 ML IV PRN (13:35)
[2018-11-26] MEDS ORDERED: DEXT 10%/0.9% NACL 1,000 ML IV SCH (13:45)
[2018-11-26] MEDS ORDERED: DEXTROSE 50% WATER 50ML SYRINGE IV PRN (13:45)
[2018-11-26] MEDS ORDERED: SODIUM CHLORIDE 23.4% 154 MEQ in DEXT 10% WATER 1,000 ML IV SCH (16:00)
[2018-11-26] MEDS: BLOOD SUGAR DIAGNOSTIC STRIP TEST SCH ×2 (16:30→21:00)
[2018-11-26] MEDS ORDERED: WARFARIN SODIUM 1MG TABLET PO SCH (18:00)
[2018-11-26] MEDS: ATORVASTATIN CALCIUM 40MG TABLET PO SCH (21:00)
[2018-11-27] VITALS (47 sets, daily range): BP systolic 37–134; BP diastolic 15–100
[2018-11-27 05:41] LABS: HEMATOCRIT. 38.9 % (36.0-48.0); HEMOGLOBIN. 12.3 g/dL (12.0-16.0); MEAN CORPUSCULAR HEMOGLOBIN 29.1 pg (28.0-32.0); MEAN CORPUSCULAR VOLUME 92.1 fL (81.0-99.0); MEAN PLATELET VOLUME 8.6 fl (7.4-10.4); PLATELET 132 x1000/uL (130-400); RED BLOOD CELL COUNT 4.23 mill/uL (4.2-5.4); RED CELL DISTRIBUTION WIDTH 18.9 % (11.6-14.6)
[2018-11-27 05:42] LABS: INR 1.6; PROTHROMBIN TIME 15.8 sec (9.1-11.1)
[2018-11-27 06:15] LABS: CHLORIDE 91 mEq/L (98-107)
[2018-11-27] MEDS: PANTOPRAZOLE 40MG DR TABLET PO SCH ×2 (06:30→09:23)
[2018-11-27] MEDS: BLOOD SUGAR DIAGNOSTIC STRIP TEST SCH ×2 (06:30→11:02)
[2018-11-27 06:39] LABS: PHOSPHORUS 3.4 mg/dL (2.5-4.9)
[2018-11-27 07:03] LABS: PLATELET ESTIMATE NORMAL
[2018-11-27] MEDS: IPRATROPIUM/ALBUTEROL 0.5-3(2.5)MG/3ML NEB HHN SCH ×2 (08:37→20:29)
[2018-11-27] MEDS: ASPIRIN 81MG TABLET PO SCH (09:23)
[2018-11-27] MEDS: MIDODRINE HCL 5MG TABLET PO SCH (09:23)
[2018-11-27] MEDS: FOLIC ACID/VITAMIN B COMP W-C TABLET PO SCH (09:23)
[2018-11-27] MEDS: CLOPIDOGREL 75MG TABLET PO SCH (09:24)
[2018-11-27] MEDS ORDERED: WARFARIN SODIUM 2MG TABLET PO SCH (18:00)
[2018-11-28] VITALS: BP 140/108
[2018-11-28] MEDS: IPRATROPIUM/ALBUTEROL 0.5-3(2.5)MG/3ML NEB HHN SCH ×4 (02:27→22:23)
[2018-11-28 04:00] VITALS: BP 91/67
[2018-11-28] MEDS: PANTOPRAZOLE 40MG DR TABLET PO SCH (07:20)
[2018-11-28 08:00] VITALS: BP 82/24
[2018-11-28 12:00] VITALS: BP 82/29
[2018-11-28] MEDS ORDERED: MORPHINE SULFATE 4 MG/ML CPJ (NOT FOR IM USE) IV PRN (15:00)
[2018-11-28 16:00] VITALS: BP 151/104
[2018-11-28] MEDS ORDERED: CEFTRIAXONE 1 G PREMIX 50 ML IV SCH (16:00)
[2018-11-28 20:00] VITALS: BP 74/15
[2018-11-28 20:17] LABS: HEPATITIS B SURFACE ANTIGEN NEGATIVE
[2018-11-28 20:47] LABS: HEPATITIS A AB IGM NEGATIVE (NEGATIVE)
[2018-11-29] VITALS: BP 76/12
[2018-11-29] MEDS: IPRATROPIUM/ALBUTEROL 0.5-3(2.5)MG/3ML NEB HHN SCH ×2 (02:52→14:57)
[2018-11-29] MEDS: PANTOPRAZOLE 40MG DR TABLET PO SCH ×2 (07:20→08:00)
[2018-11-29 08:00] VITALS: BP 204/183
[2018-11-29] MEDS ORDERED: MORPHINE SULFATE 4 MG/ML CPJ (NOT FOR IM USE) IV PRN (08:15)
[2018-11-29 17:47] VITALS: BP 204/18
== END 2018-11-29 18:36 | disposition home or self-care (01) | DRG 871 ==
LOC: ER 11:18 → EDBEDREQ 11:48 → EDBEDREQSVC 13:41 → MICUSO 11-25 13:38 → ENRESERV 11-25 13:56 → 6EST 11-27 17:15
PROVIDERS: ADMIT Family Medicine; ATTEND Family Medicine
PROC: 02HV33Z Insertion of Infusion Device into Superior Vena Cava, Percutaneous Approach (ICD-10-PCS; principal; 2018-11-24)
PROC: B548ZZA Ultrasonography of Superior Vena Cava, Guidance (ICD-10-PCS; 2018-11-24)
PROC: 5A1D70Z Performance of Urinary Filtration, Intermittent, Less than 6 Hours Per Day (ICD-10-PCS; 2018-11-25)
DX: A41.9 Sepsis, unspecified organism (principal); G93.41 Metabolic encephalopathy; N18.6 End stage renal disease; E43 Unspecified severe protein-calorie malnutrition; J96.91 Respiratory failure, unspecified with hypoxia; D68.59 Other primary thrombophilia; E11.52 Type 2 diabetes mellitus with diabetic peripheral angiopathy with gangrene; I12.0 Hypertensive chronic kidney disease with stage 5 chronic kidney disease or end stage renal disease; I42.9 Cardiomyopathy, unspecified; N25.81 Secondary hyperparathyroidism of renal origin; L03.119 Cellulitis of unspecified part of limb; E11.22 Type 2 diabetes mellitus with diabetic chronic kidney disease; Z51.5 Encounter for palliative care; Z66 Do not resuscitate; E11.36 Type 2 diabetes mellitus with diabetic cataract; K21.0 Gastro-esophageal reflux disease with esophagitis; E83.39 Other disorders of phosphorus metabolism; R60.9 Edema, unspecified; E11.649 Type 2 diabetes mellitus with hypoglycemia without coma; I08.3 Combined rheumatic disorders of mitral, aortic and tricuspid valves; I70.203 Unspecified atherosclerosis of native arteries of extremities, bilateral legs; L97.529 Non-pressure chronic ulcer of other part of left foot with unspecified severity; E78.00 Pure hypercholesterolemia, unspecified; E78.5 Hyperlipidemia, unspecified; I25.10 Atherosclerotic heart disease of native coronary artery without angina pectoris; I27.29 Other secondary pulmonary hypertension; I27.81 Cor pulmonale (chronic); I48.0 Paroxysmal atrial fibrillation; I48.2 Chronic atrial fibrillation; I49.5 Sick sinus syndrome; K29.70 Gastritis, unspecified, without bleeding; M06.9 Rheumatoid arthritis, unspecified; M10.9 Gout, unspecified; M81.0 Age-related osteoporosis without current pathological fracture; Z79.01 Long term (current) use of anticoagulants; Z79.02 Long term (current) use of antithrombotics/antiplatelets; Z82.41 Family history of sudden cardiac death; Z82.49 Family history of ischemic heart disease and other diseases of the circulatory system; Z86.718 Personal history of other venous thrombosis and embolism; I25.2 Old myocardial infarction; Z86.73 Personal history of transient ischemic attack (TIA), and cerebral infarction without residual deficits; Z87.11 Personal history of peptic ulcer disease; Z95.0 Presence of cardiac pacemaker; Z99.2 Dependence on renal dialysis; Z88.8 Allergy status to other drugs, medicaments and biological substances; Z79.899 Other long term (current) drug therapy; Z68.21 Body mass index [BMI] 21.0-21.9, adult
CPT/HCPCS: 36415; 36569; 36600; 71045; 74018; 76937; 80048; 80061; 82140; 82375; 82550; 82553; 82805; 82962; 83605; 83735; 83880; 84100; 84145; 84484; 84550; 85379; 86705; 86706; 86709; 86803; 86850; 86900; 87070; 87077; 87186; 87340; 93005; 93306; 93880; 93923; 93970; 96365; 96366; 99285; A6261; C1725; J0696; J2270; J3490; J7040; J7060; J7131; J7620